=== PATIENT | female | born 1995 | race Two or more races ===

== ENCOUNTER 2024-01-27 17:22 | Emergency (ER) | payer OTHER ==
[~2024-01-27] VITALS: Ht 157.5 cm; Wt 72.1 kg
[2024-01-27 18:21] VITALS: BP 122/80; PULSE 90; RESP 16; TEMP 98.8; O2SAT 96
[2024-01-27] MEDS ORDERED: IBUP1TAB5 PO (18:53)
[2024-01-27] MEDS ORDERED: CYCL-837 PO (18:53)
[2024-01-27] MEDS: KETOROLAC TROMETH 30 MG/ML 1ML VIAL IM ONE (18:54)
== END 2024-01-27 19:13 | disposition home or self-care (01) ==
LOC: ER 17:22
DX: R51.9 Headache, unspecified (principal); M54.2 Cervicalgia; M79.601 Pain in right arm; M54.6 Pain in thoracic spine; V89.2XXA Person injured in unspecified motor-vehicle accident, traffic, initial encounter; Y93.I9 Activity, other involving external motion; Y92.89 Other specified places as the place of occurrence of the external cause; Y99.8 Other external cause status
CPT/HCPCS: 96372; 99283; J1885

== ENCOUNTER 2024-06-21 11:55 | Emergency (ER) | payer MEDICAID, OTHER ==
[~2024-06-21] VITALS: Ht 152.4 cm; Wt 69.2 kg
[~2024-06-21 11:55] MED LIST: CYCL-837 PO; IBUP1TAB5 PO
--- NOTE | 2024-06-21 12:54 | ED.PDOC ---
Back pain HPI HPI Comments A 28 YEAR OLD FEMALE PRESENTS TO THE ED WITH COMPLAINT OF NECK PAIN. PATIENT STATES SHE HAS BEEN EXPERIENCING NECK PAIN THAT STARTED YESTERDAY NIGHT. PATIENT REPORTS HER PAIN IS WORSE WITH MOVEMENT. PATIENT DENIES NECK INJURY, FEVER, CHILLS, SHORTNESS OF BREATH, CHEST PAIN, ABDOMINAL PAIN, NAUSEA, VOMITING, HEADACHE, OR OTHER COMPLAINTS. NO OTHER SYMPTOMS OR MODIFYING FACTORS AT THIS TIME. PATIENT IS ALERT, ORIENTED X 4, AND HAS STEADY GAIT. Chief Complaint: Neck Pain Time Seen by MD: 12:16 Primary Care Provider: NONE Reviewed Notes: Nurses Notes, Medications, Allergies Allergies: Coded Allergies: NO KNOWN ALLERGIES (Unverified , 01/27/24) Home Meds Active Scripts Ibuprofen (Ibuprofen) 600 Mg Tab, 1 TAB PO TID, #30 TAB Prov:RICK MARCELO 06/21/24 Baclofen (Baclofen) 10 Mg Tab, 10 MG PO BID, #20 TAB Prov:RICK MARCELO 06/21/24 Cyclobenzaprine Hcl (Cyclobenzaprine Hcl) 5 Mg Tab, 1 TAB PO TID, #20 TAB Prov:SHIRA WOOD 01/27/24 Ibuprofen Micronized (Ibuprofen) 600 Mg Tab, 600 MG PO [id number] PRN, #20 TAB Prov:SHIRA WOOD 01/27/24 Information Source: Patient Mode of Arrival: Ambulatory Timing: Days Duration: Since onset, Days Location of Back pain: (L) Cervical Severity: Moderate Prehospital treatment: None Quality: Aching, Cramping Onset: Spontaneous History of: None Modifying Factors: Movement Associated signs and symptoms: None Past Medical History PAST MEDICAL HISTORY: Denies Surgical History: Denies all surgeries POCKET MAKER History: No Pertinent POCKET MAKER History Family History Family History: Reviewed,noncontributory to illness Social History Smoker: Non-Smoker Alcohol: Denies ETOH Use Drugs: Denies Drug Use Lives In: Home Constitutional: denies: chills, diaphoresis, fatigue, fever, malaise, sweats, weakness, others EENTM: denies: blurred vision, double vision, ear bleeding, ear discharge, ear drainage, ear pain, ear ringing, eye pain, eye redness, hearing loss, mouth pain, mouth swelling, nasal discharge, nose bleeding, nose congestion, nose pain, photophobia, tearing, throat pain, throat swelling, voice changes, others Respiratory: denies: cough, hemoptysis, orthopnea, SOB at rest, shortness of breath, SOB with excertion, stridor, wheezing, others Cardiovascular: denies: chest pain, dizzy spells, diaphoresis, Dyspnea on exertion, edema, irregular heart beat, left arm pain, lightheadedness, palpitations, PND, syncope, others Gastrointestinal: denies: abdomen distended, abdominal pain, blood streaked bowels, constipated, diarrhea, dysphagia, difficulty swallowing, hematemesis, melena, nausea, poor appetite, poor fluid intake, rectal bleeding, rectal pain, vomiting, others Genitourinary: denies: abnormal vagina bleeding, burning, dyspareunia, dysuria, flank pain, frequency, hematuria, incontinence, pain, , vagina discharge, urgency, others Neurological: denies: dizziness, fainting, headache, left sided numbness, left sided weakness, numbness, paresthesia, pre-existing deficit, right sided numbness, right sided weakness, seizure, speech problems, tingling, tremors, weakness, others Musculoskeletal: reports: muscle pain, neck pain; denies: back pain, gout, joint pain, joint swelling, muscle stiffness, others Integumetry: denies: bruises, change in color, change in hair/nails, dryness, laceration, lesions, lumps, rash, wounds, others Allergic/Immunocompromised: denies: Difficulty Healing, Frequent Infections, Hives, Itching, others Hematologic/Lymphatic: denies: anemia, blood clots, easy bleeding, easy brui sing, swollen glands, others Endocrine: denies: excessive hunger, excessive sweating, excessive thirst, ex cessive urination, flushing, intolerance to cold, intolerance to heat, unexplained weight gain, unexplained weight loss, others Psychiatric: denies: anxiety, bipolar disorder, depression, hopeless, panic disorder, schizophrenia, sleepless, suicidal, others All Other Systems: Reviewed and Negative Physical Exam General Appearance: Mild Distress, Normal HEENT: Normal ENT Inspection, PERRL/EOMI, Pharynx Normal, TMs Normal Neck: Full Range of Motion, Normal Inspection, Supple, Tender Lateral (MUSCLE TIGHTNESS ON LEFT SIDE NECK, NO BONY TENDERNESS, SWELLING AND DEFORMITY. ) Respiratory: Chest Non-Tender, Lungs Clear, No Accessory Muscle Use, No Respiratory Distress, Normal Breath Sounds Cardiovascular: No Edema, No JVD, No Murmur, No Gallop, Normal Peripheral Pulses, Regular Rate/Rhythm Breast Exam: Deferred Gastrointestinal: No Organomegaly, Non Tender, No Pulsatile Mass, Normal Bowel Sounds, Soft Genitalia: Deferred Pelvic: Deferred Rectal: Deferred Extremities: No calf tenderness, Normal capillary refill, Normal inspection, Normal range of motion, Non-tender, No pedal edema Musculoskeletal : Apperance: Normal Neurologic: Alert, chief analytics officer II-XII nml as Tested, No Motor Deficits, Normal Affect, Normal Mood, No Sensory Deficits Cerebellar Function: Normal Reflexes: Normal Skin: Dry, Normal Color, Warm Peripheral Pulses: 2+ carotid (R), 2+ carotid (L) Lymphatic: No Adenopathy Was a procedure done? Was a procedure done?: No Back Pain Differential Dx Differential Diagnosis: Fracture, Musculoskeletal Pain, Strain Other Differential Diagnosis CERVICAL MUSCLE STRAIN, TORTICOLLIS X-Ray, Labs, Meds, VS Vital Signs Date Time Temp Pulse Resp B/P (MAP) Pulse Ox O2 Delivery O2 Flow Rate FiO2 06/21/24 13:08 97.9 82 20 119/84 (96) 97 97.9 06/21/24 13:08 82 20 97 Room Air 06/21/24 12:08 97.9 82 20 119/84 (96) 97 Current Medications Medications (Trade) Dose Ordered Sig/Kin Route Start Time Stop Time Status Last Admin Ketorolac Tromethamine (Toradol Injection) 60 mg ONCE ONCE IM 06/21/24 13:00 06/21/24 13:01 DC 06/21/24 13:10 Baclofen (Liorisal Tablet) 10 mg ONCE ONCE PO 06/21/24 13:00 06/21/24 13:01 DC 06/21/24 13:09 X-Ray, Labs, Meds, VS Comment EXTERNAL NOTES: NONE LABS ORDERED: NONE REVIEWED AND INTERPRETED RESULTS: NONE IMAGING ORDERED: NONE INDEPENDENT HISTORIANS: NONE TREATMENTS ORDERED: TORADOL 60MG IM, BACLOFEN 10MG PO, HEATING PACK APPLIED TO PATIENT'S NECK. PATIENT'S CASE AND RESULTS HAVE BEEN DISCUSSED WITH THE ED ATTENDING PHYSICIAN AND THEY AGREE WITH MY PLAN OF CARE. I HAVE INSTRUCTED THE PATIENT TO FOLLOW UP WITH THEIR PCP IN 1-2 DAYS. THE PATIENT FULLY UNDERSTANDS THEIR RESULTS AND ARE AWARE THEY NEED TO FOLLOW UP WITH THEIR PCP FOR FURTHER EVALUATION IF THEIR SYMPTOMS PERSIST. Time of 1ST Reevaluation: 13:37 Reevaluation 1ST: Improved Patient Education/Counseling: Diagnosis, Treatment, Need For Follow Up Family Education/Counseling: Diagnosis, Treatment, Need For Follow Up Medical Screening: No EMC Exist At This Time Departure 1 Departure Time of Disposition: 13:37 Impression: Primary Impression: Torticollis Disposition: 01 HOME / SELF CARE / HOMELESS Condition: Stable Additional Instructions: FOLLOW-UP WITH PCP IN 1 TO 2 DAYS. TAKE MEDICATIONS PRESCRIBED. RETURN TO ED FOR ANY NEW OR WORSENING SYMPTOMS. e-Prescriptions Ibuprofen (Ibuprofen) 600 Mg Tab 1 TAB PO TID, #30 TAB Prov: RICK MARCELO 06/21/24 Baclofen (Baclofen) 10 Mg Tab 10 MG PO BID, #20 TAB Prov: RICK MARCELO 06/21/24 Discharged With: Self Critical Care Note Critical Care Time?: No Stability Stability form required: No I personally scribed for RICK MARCELO ([email or web address]) on 06/21/24 at 12:54. Elect ronically submitted by Felix Arvizu ([email or web address]). RICK MARCELO Jun 21, 2024 12:54
[2024-06-21 13:08] VITALS: BP 119/84; PULSE 82; RESP 20; TEMP 97.9; O2SAT 97
[2024-06-21] MEDS: BACLOFEN 10 MG TAB PO ONE (13:09)
[2024-06-21] MEDS: KETOROLAC TROMETH 60MG/2ML VIAL IM ONE (13:10)
[2024-06-21] MEDS ORDERED: IBUP-1454 PO (13:24)
[2024-06-21] MEDS ORDERED: BACL10TA PO (13:24)
== END 2024-06-21 13:28 | disposition home or self-care (01) ==
LOC: ER 11:55
DX: M43.6 Torticollis (principal); Z79.899 Other long term (current) drug therapy
CPT/HCPCS: 96372; 99283; J1885